=== PATIENT | female | born 1995 | race Caucasian/White ===

== ENCOUNTER 2016-04-12 18:45 | Emergency (ER) | payer MEDICAID ==
[2016-04-12] MEDS ORDERED: LIDOCAINE 1% MDV 20 ML ONE (20:45)
[2016-04-12] MEDS ORDERED: CEFTRIAXONE 1 GM VIAL ONE (20:46)
== END 2016-04-12 21:15 | disposition home or self-care (01) ==
LOC: FASTR 18:45
DX: N30.90 Cystitis, unspecified without hematuria (principal)
CPT/HCPCS: 81001; 81025; 87077; 87088; 87186; 87491; 87591; 87800; 96372